=== PATIENT | female | born 1960 | race Caucasian/White ===

== ENCOUNTER 2018-12-13 06:11 | Day surgery (SDC) | payer OTHER ==
[~2018-12-13] VITALS: Ht 144.8 cm; Wt 42.2 kg
[~2018-12-13 06:11] MED LIST: DOXY100C2 PO; FERR325T6 PO; GEMF600T5 PO; LOSA100T32 PO
[2018-12-13] MEDS ORDERED: LACTATED RINGERS 1,000 ML IV SCH (07:00)
[2018-12-13] MEDS ORDERED: BUPIVACAINE HCL 0.5% (5MG/ML) 50ML ONE (07:14)
[2018-12-13] MEDS ORDERED: BACITRACIN 50,000 UNITS/VIAL ONE ×2 (07:14→08:20)
[2018-12-13] MEDS ORDERED: BUPIVACAINE HCL/PF 0.5% (5MG/ML) 10ML ONE (08:20)
[2018-12-13] MEDS ORDERED: NORMAL SALINE 0.9% 10 ML SYR ONE (08:20)
[2018-12-13] MEDS ORDERED: FENTANYL CITRATE/PF 50MCG/ML 2ML VIAL ONE (08:43)
[2018-12-13] MEDS ORDERED: MIDAZOLAM HCL 2 MG/2 ML VIAL ONE (08:43)
[2018-12-13] MEDS ORDERED: LIDOCAINE HCL/PF 1% 10 MG/ML 5ML VIAL ONE (08:43)
[2018-12-13] MEDS ORDERED: PROPOFOL 200MG/20ML VIAL IV ONE (08:43)
[2018-12-13] MEDS ORDERED: LIDOCAINE HCL 1% 20ML VIAL (Pyxis) INJ ONE (08:49)
[2018-12-13] MEDS ORDERED: KETOROLAC 30MG/ML VIAL ONE (09:03)
[2018-12-13] MEDS ORDERED: SKIN ADHESIVE 0.7 GM EA TOP ONE (09:03)
[2018-12-13] MEDS ORDERED: CEFAZOLIN SODIUM 1000MG/VIAL ONE (09:55)
== END 2018-12-13 10:46 | disposition home or self-care (01) ==
LOC: OR 06:11
PROVIDERS: ATTEND Surgery
DX: R22.32 Localized swelling, mass and lump, left upper limb (principal); D17.1 Benign lipomatous neoplasm of skin and subcutaneous tissue of trunk; I10 Essential (primary) hypertension; E78.00 Pure hypercholesterolemia, unspecified; F41.9 Anxiety disorder, unspecified; Z87.891 Personal history of nicotine dependence; Z98.51 Tubal ligation status; Z79.899 Other long term (current) drug therapy
CPT/HCPCS: 24075; 88304; 93005; J0690; J1885; J2250; J2704; J3010; J3490

== ENCOUNTER → 2022-01-15 | Day surgery (SDC) | payer MEDICAID ==
[~2022-01-15] VITALS: Ht 142.2 cm; Wt 49.0 kg
[~2022-01-15] MED LIST changes: +BUPIVACAINE HCL/PF 0.5% (5MG/ML) 10ML ONE; +CARV12.545 PO; +CHOL100022 PO; +CYAN100T43 PO; -DOXY100C2 PO; +DOXY100C5 PO; +FENTANYL CITRATE/PF 50MCG/ML 2ML VIAL ONE; -GEMF600T5 PO; +GEMF600T90 PO; +GLUT500T8 PO; +GLYCOPYRROLATE 0.2 MG/ML 2ML VIAL ONE; +HYDROMORPHONE HCL/PF 2MG/ML CPJ IV PRN; +LABETALOL 5MG/ML SYR 20 MG/4 ML SYRINGE IV PRN; +LACTATED RINGERS 1,000 ML IV SCH; +LIDOCAINE HCL 1% 10 MG/ML 10ML VIAL ONE; +LORA10TA7 PO; +MEPERIDINE HCL/PF 25MG/ML CPJ IV PRN; +MIDAZOLAM HCL 2 MG/2 ML VIAL ONE; +MILK150C2 PO; +MULT-1195 PO; +OMEG1CAP46 PO; +ONDANSETRON HCL 4MG/2ML INJ IV PRN; +ONDANSETRON HCL 4MG/2ML INJ ONE; +PROPOFOL 200MG/20ML VIAL IV ONE; +SKIN ADHESIVE 0.7 GM EA TOP ONE
== END | disposition home or self-care (01) ==
LOC: OR 06:13
PROVIDERS: ATTEND Surgery
DX: R22.2 Localized swelling, mass and lump, trunk (principal); D36.7 Benign neoplasm of other specified sites; I10 Essential (primary) hypertension; E78.00 Pure hypercholesterolemia, unspecified; Z79.899 Other long term (current) drug therapy; Z98.890 Other specified postprocedural states; Z20.822 Contact with and (suspected) exposure to COVID-19
CPT/HCPCS: 21552; 87426; 88304; 93005; C9803; J2250; J2405; J2704; J3010; J3490